=== PATIENT | female | born 1970 | race Caucasian/White ===

== ENCOUNTER 2016-09-22 05:39 | Day surgery (SDC) | payer OTHER ==
[2016-09-22] VITALS (8 sets, daily range): BP systolic 97–120; BP diastolic 54–70; PULSE 68–74; RESP 11–17; O2SAT 95–99
[~2016-09-22] VITALS: Ht 157.5 cm; Wt 105.0 kg
[2016-09-22] MEDS: Lactated Ringer's 1,000 ML IV SCH ×2 (05:38→07:40)
[~2016-09-22 05:39] MED LIST: ACAI500C PO; ALBU2.5V4 INHALATION; ASPI-973 PO; BUPR150T8 PO; CALCIO DEL MAR PO; CHOL200047 PO; CITA40TA13 PO; CYAN250014 PO; FLAX100038 PO; FURO-129 PO; GABA-504 PO; INSU100I25 SQ; INSU100V28 SUBQ; LACT1CAP13 PO; LIP40 PO; MELO-259 PO; METF-496 PO; METO50TA3 PO; OMEP40CA36 PO; PRE20 PO; PROM25TA14 PO; ROPI3TAB PO; SOY155CA PO; VALA100026 PO
[2016-09-22] MEDS ORDERED: Ondansetron 2 mg/mL 2 mL Inj ONE (05:40)
[2016-09-22] MEDS ORDERED: Propofol 10,000 mCg/mL 20 mL Inj ONE (05:40)
[2016-09-22] MEDS ORDERED: fentaNYL-PF 50 mCg/mL 2 mL Inj ONE (05:40)
[2016-09-22] MEDS ORDERED: CeFAZolin Inj 2 GM in IV Premix 1 EACH IV ONE (06:00)
[2016-09-22] MEDS ORDERED: Insulin LISPRO 300 Unit/3 mL Inj ONE (07:17)
--- NOTE | 2016-09-22 07:27 | PCM.HPANE ---
Patient Data Surgeon Admitting Provider: Attending Provider:Melissa Peguero MD Primary Care Physician:Maddy Ashley Other Provider:Ric Ferguson Anesthesia Reason for Visit Interstitial Cystitis Ht/WT & BMI Height (Feet): 5 Height (Inches): 2.00 Weight (Kilograms): 105.0 Body Mass Index 42.00 Allergies Coded Allergies: Penicillins (Verified Allergy, Unknown, UNKNOWN (FROM OLD RECORD-CAN TAKE ANCEF W/O PROBS.), 09/20/16) metformin (Verified Adverse Reaction, Severe, DIARRHEA (METFORMIN ER OK) , 09/20/16) Past Anesthesia History Anesthesia History: Denies:: Abnormal Airway, Anesthesia Reactions, Difficult Intubation, Fam Anesthesia Reaction, Fam Malignant Hypertherm, Malignant Hyperthermia Diabetes History Hx Diabetes?: Yes Type of Diabetes: Type II Glycemic Control: Insulin & Oral Medication Current Bedside Blood Glucose: 321 MRSA MRSA: No Medications Blood Thinner: Aspirin Hypertension Medication: Yes (LASIX) Home Meds Incl Beta Chris: Yes (Metoprolol 75mg) Date Beta Chris Taken: Sep 22, 2016 Time Beta Chris Taken: 444 Active Scripts Albuterol Neb Soln 2.5 Mg/3 Ml Vial.neb2.5-5 Mg INHALATION Q4H PRN For Shortness of Breath #20 NEB Ref 0 Prov:Norman Deleon DO 10/20/15 Reported Medications Metformin ER 1,000 Mg Tablet1,000 Mg PO BID Ref 0 09/20/16 Bupropion ER (Wellbutrin SR)150 Mg Tablet.er150 Mg PO BID Ref 0 please verify dosage 09/20/16 Valacyclovir 1,000 Mg Tablet1,000 Mg PO Q8H 09/20/16 Promethazine 25 Mg Dnjrzh38 Mg PO Q6H PRN For Nausea Ref 0 09/20/16 Atorvastatin (Lipitor)40 Mg Ykktrr42 Mg PO DAILY Ref 0 09/20/16 Prednisone (PredniSONE)20 Mg Ibdcib06 Mg PO DAILY Ref 0 09/20/16 Flaxseed Oil ([place]-3 Flaxseed Oil)1,000 Mg Capsule1,000 Mg PO DAILY 09/20/16 Aspirin 81 Mg Fygzzl61 Mg PO DAILY Ref 0 09/20/16 Meloxicam 7.5 Mg Tablet7.5 Mg PO DAILY 30 Days Ref 0 03/03/16 Insulin Regular, Human (HUMulin-R U100 Insulin Vial)100 Unit/1 Ml Vial20 Unit SUBQ TID #1 VIAL Ref 0 03/03/16 Gabapentin 400 Mg Capsule1,200 Mg PO HS Ref 0 03/03/16 Soy Isofla/Blk Cohosh/Mag Bark (Estroven 155 mg Capsule)155 Mg Itwmqep718 Mg PO DAILY 03/03/16 Cholecalciferol (Vitamin D3) (Vitamin D3)2,000 Unit Capsule2,000 Unit PO DAILY 03/03/16 Cyanocobalamin (Vitamin B-12) (Vitamin B12)2,500 Mcg Tab.zrng695 Mcg PO DAILY 03/03/16 Acai Galvan Extract (Acai Galvan)500 Mg Pmfnajk978 Mg PO DAILY 03/03/16 Ropinirole 3 Mg Tablet3 Mg PO BID 30 Days Ref 0 09/18/14 Omeprazole 40 Mg Capsule.dr40 Mg PO DAILY 30 Days Ref 0 09/18/14 Insulin Detemir (Levemir Flextouch)100 Unit/1 Ml Insuln.pen55 Unit SQ BID 45U IN AM; 55U IN PM 09/18/14 Metoprolol Tartrate 50 Mg Zdjhbj91 Mg PO BID 30 Days Ref 0 09/18/14 Furosemide (Lasix)20 Mg Rxfmpk35 Mg PO DAILY 30 Days Ref 0 09/18/14 [Calcio Gonzalez] No Conflict Check1 Tab PO DAILY 09/18/14 Citalopram 40 Mg Keuqol09 Mg PO DAILY 30 Days Ref 0 09/17/14 Lactobacillus Acidophilus (Acidophilus)1 Each Capsule2 Each PO DAILY 09/17/14 Discontinued Reported Medications Simvastatin 40 Mg Xvszbg16 Mg PO HS 30 Days Ref 0 03/28/16 Sulfamethoxazole/Trimeth 800-160 mg (Bactrim DS)1 Each Tablet1 Tablet PO BID Ref 0 03/03/16 Metformin 500 Mg Tablet1,000 Mg PO BID Ref 0 03/03/16 Flaxseed (Flaxseed Oil)1,000 Mg Capsule1,000 Mg PO DAILY 09/18/14 Aspirin (Aspir 81)81 Mg Tablet.dr81 Mg PO DAILY Ref 0 09/17/14 History History of ENT Problems?: Yes HEENT History: Denies:: Abnormal Airway Difficult Intubation Hearing Problem Denture Type: Partial- Upper Other HEENT Pertinent History: S/P TONSILLECTOMY Hx of Heart Problems?: Yes Cardiovascular History: Positive for:: Chest Pain Coronary Artery Disease (2006 HX OF SUBENDOCARD. [place] R/T THROMBOTIC THROMBOCYTOPENIA PURPURA) Edema Hypertension (HYPERLIPIDEMIA) Denies:: Congestive Heart Failure Heart Murmur (ECHO 04/2006 EF 60-65%) Valvular Heart Disease Hx of Respiratory Problem?: Yes Respiratory History: Positive for:: Asthma Use of C-PAP Machine (ZOFIA+ W/ CPAP) Use of Inhalers / NEBS Denies:: Tuberculosis Hx Neurologic Problems?: Yes Neurological History: Denies:: CVA Other Neurological Pertinent: RLS Hx of GI Problems?: Yes Gastrointestinal History: Positive for:: Gastroesphageal Reflux Denies:: Rectal Bleeding (HX HEMORRHOIDS C/OF INTERMITTANT DIARRHEA) Hx of Problems?: Yes Genitourinary History: Positive for:: Urinary Tract Infection (RECURRENT INTERSTITIAL CYSTITIS/UTI'S S/P CYSTO,HYDRODILATION) Other Pertinent History: C/OF INCREASING DYSURIA,URGENCY,FREQUENCY INTERSTITIAL CYSTITIS=CURRENT PROBLEM Female Hx: Positive for:: Problems with Breasts? (S/P EXC SUB-AREOLAR CYST, BREAST REDUCTION) Denies:: Currently Skin History: Positive for:: History Skin Disorders? (HX ACNE, SWEAT GLAND DISORDER) Denies:: Pressure Ulcers Hx Musculoskeletal Problems?: Yes Musculoskeletal History: Positive for:: Musculoskeletal Trauma (HX OF SHOULDER INJURIES) Hx of Psycho/Social Problems?: Yes Psycho Social History: Positive for:: Hx Depression Hx Surgeries?: Yes (CYSTO,HYDRODISTENTION,BREAST DUCT EXC/REDUCTION,TONSILS,BTL ) Hx Any Other Health Problems?: Yes Other History: Positive for:: Hospitalization ([place]) Denies:: Cancer Endocrine Disease Thyroid Disease History Blood Transfusions: Denies:: Blood Transfusions Hx Diabetes: YesBedside Blood Glucose: 321 Hx Alcohol Use: NoHx Substance Use: No Smoking Status: Current Every Day Smoker Have You Smoked inLast 12 mo: Yes Stop/Bang S-Snoring: Do You Snore Loudly: No T-Tired: feel tired, fatigued: Yes O-Obsered: Observed not breath: No P-Blood Pressure: treated: Yes B- Body Mass Index > 35 kg/m2: Yes A- Age over 50: No N- Neck Large Circumference: Yes G- Gender Male: No ZOFIA Total Score: 4 Risk Assessment Category Category 1A: Patient has history of documented sleep apnea, and HAS NOT received any narcotic, sedative or anesthesia administration during this stay. Category 1B: Patient has history of documented sleep apnea, and HAS received any narcotic , sedative or anesthesia administration during this stay Category 2: Patient has SUSPECTED Obstructive Sleep Apnea, and HAS received any narcotic , sedative or anesthesia administration during this stay. Category 3: Patient has SUSPECTED Obstructive Sleep Apnea and HAS NOT received narcotic, sedative or anesthesia administration during this stay. Category 4: Outpatient in Procedural Areas with known sleep apnea or who screen positive for High Risk via the STOP/BANG questionnaire. Exam Exam Vital Signs Vital Signs Date Time Temp Pulse Resp B/P Pulse Ox O2 Delivery O2 Flow Rate FiO2 09/22/16 06:10 36.1 68 16 114/68 Room Air General Appearance: Alert, Oriented X3, Cooperative, No Acute Distress HEENT/AIRWAY: MP 1 Lungs: Normal Air Movement Heart: Regular Rate/Rhythm Meds/Labs/Diagnostics Admission Meds Current Medications Lactated Ringer's (Lr) 1,000 ml @ 120 mls/hr Q8H20M IV Last administered on t 05:38; Start 09/22/16 at 05:00; Stop 09/22/16 at 13:19 Bedside Blood Glucose: 321 Plan Impression Patient chart reviewed, patient interviewed and anesthestic plan with risks, benefits, and alternatives discussed, and informed consent obtained. NPO Status: 09/21 at 2100 ASA Physical Status: ASA3 Severe Disease Anesthetic Plan: GA Bene/Risks/Altern/Consents: Yes HP Complete Prior to Induction: Yes Noemi Dave DO Sep 22, 2016 07:27
[2016-09-22] MEDS ORDERED: MetoCLOpramide 5 mg/mL 2 mL Inj IVPUSH PRN (07:50)
[2016-09-22] MEDS ORDERED: Lactated Ringer's 500 ML IV PRN (07:50)
[2016-09-22] MEDS ORDERED: Lactated Ringer's 1,000 ML IV SCH (07:50)
[2016-09-22] MEDS ORDERED: HYDROmorphone 1 mg/mL Inj IVPUSH PRN (07:50)
[2016-09-22] MEDS ORDERED: Glucose 40% Oral Gel 15 Gm Tube PO PRN (07:50)
[2016-09-22] MEDS ORDERED: Ondansetron 2 mg/mL 2 mL Inj IVPUSH PRN (07:50)
[2016-09-22] MEDS ORDERED: EPHEDrine Sulfate 50 mg/mL Inj IVPUSH PRN (07:50)
[2016-09-22] MEDS ORDERED: Phenylephrine 10,000 mCg/mL Inj IVPUSH PRN (07:50)
[2016-09-22] MEDS ORDERED: fentaNYL-PF 50 mCg/mL 2 mL Inj IVPUSH PRN (07:50)
[2016-09-22] MEDS ORDERED: Insulin LISPRO 300 Unit/3 mL Inj SUBQ SCH (08:00)
[2016-09-22] MEDS ORDERED: HYDROcodone-APAP 5-325 mg Tablet PO PRN (08:10)
--- NOTE | 2016-09-22 08:26 | PCM.ANEP1 ---
Post Anesthesia Phase 1 PACU Phase 1 Assessment Vital Signs Vital Signs Date Time Temp Pulse Resp B/P Pulse Ox O2 Delivery O2 Flow Rate FiO2 09/22/16 08:20 68 13 102/67 99 Simple Mask 8 09/22/16 08:15 69 14 120/70 98 Simple Mask 8 09/22/16 08:10 36.3 68 13 107/57 98 Simple Mask 8 09/22/16 06:10 36.1 68 16 114/68 Room Air Anesthetic Administered: GA Level of Alertness: Sleepy, easy to arouse REYES's with Equal Strength: Yes Pain: No Nausea or Vomiting: No Oxygen Delivery: Simple Mask Lungs: Normal Air Movement Noemi Dave DO Sep 22, 2016 08:26
--- NOTE | 2016-09-22 08:26 | PCM.ANEP2 ---
Post Anesthesia Evaluation ASA/CMS Post Anesthesia VS in Patient's Normal Range?: Yes Resp Stable; Airway Patent?: Yes CV Function & Hydration Stable: Yes Mental Status Recovered?: Yes Pain control Satisfactory?: Yes N/V Control Satisfactory?: Yes Noemi Dave DO Sep 22, 2016 08:26
--- NOTE | 2016-09-22 16:33 | OP ---
[address] [address] OPERATIVE REPORT PATIENT: NIA GRAVES : 1970 MR#: [id number] ADMIT: 09/22/2016 JOB ID: [id number] DATE OF SURGERY: 09/22/2016 PREOPERATIVE DIAGNOSIS(ES): 1. Interstitial cystitis. 2. History of recurrent urinary tract infection. POSTOPERATIVE DIAGNOSIS(ES): 1. Interstitial cystitis. 2. History of recurrent urinary tract infection. PROCEDURE PERFORMED: Cystoscopy and hydrodistention. SURGEON: Melissa Peguero MD. CALCIMINER: None. FINDINGS: 1. Diffuse cystitis cystica. 2. Intravesical hyperemia and some petechiae present status post hydrodistention. ANESTHESIA: General. ESTIMATED BLOOD LOSS: None. DRAINS: None. SPECIMENS: None. COMPLICATIONS: None. CONDITION: Stable. INDICATION FOR PROCEDURE: The patient is a 46-year-old woman with a history of interstitial cystitis and recurrent urinary tract infections. She now presents for cystoscopy and hydrodistention. DESCRIPTION OF THE PROCEDURE: After informed consent was obtained, the patient was taken to the operating room. A time-out was performed identifying correct patient, surgical site, and procedure. General anesthesia ws smoothly induced. She was given intravenous antibiotics just prior to the start of the procedure. She was placed in the lithotomy position and all pressure points were identified and appropriately padded. Her genitals were then prepped and draped in the usual sterile fashion. A 22-Yi rigid cystoscope was applied to the patient's urethra and advanced to the bladder. Bladder was drained. The bladder was systematically inspected. Both ureteral orifices were in orthotopic position. There was a finding of diffuse cystitis cystica. Hydrodistention proceeded x3. Volumes were 750 mL, 800 mL, and 800 mL, respectively. Cystoscopy post distention did reveal hyperemia and petechiae, consistent with history of interstitial cystitis. The bladder was drained. The patient was then reversed from general anesthesia and taken to PACU in good and stable condition. [facility]
== END 2016-09-22 23:59 | disposition home or self-care (01) ==
LOC: SAS 05:39
PROVIDERS: ATTEND Urology
DX: N30.10 Interstitial cystitis (chronic) without hematuria (principal); N39.46 Mixed incontinence; R35.0 Frequency of micturition; I10 Essential (primary) hypertension; F32.9 Major depressive disorder, single episode, unspecified; K21.9 Gastro-esophageal reflux disease without esophagitis; E11.9 Type 2 diabetes mellitus without complications; J45.909 Unspecified asthma, uncomplicated; E78.5 Hyperlipidemia, unspecified; G25.81 Restless legs syndrome; F17.210 Nicotine dependence, cigarettes, uncomplicated; Z87.440 Personal history of urinary (tract) infections; Z79.82 Long term (current) use of aspirin; Z79.4 Long term (current) use of insulin; Z79.84 Long term (current) use of oral hypoglycemic drugs
CPT/HCPCS: 52260; J0690; J2405; J3010; J7120

== ENCOUNTER 2016-12-20 06:43 | Day surgery (SDC) | payer OTHER ==
[2016-12-20] VITALS (9 sets, daily range): BP systolic 101–128; BP diastolic 60–79; PULSE 78–86; RESP 15–26; O2SAT 94–97
[~2016-12-20] VITALS: Ht 157.5 cm; Wt 115.3 kg
[~2016-12-20 06:43] MED LIST changes: +Botulinum Toxin Type-A 100 unit Inj XX ONE; -LACT1CAP13 PO; +LACT1CAP26 PO; +LIRA0.6P SQ; +Levofloxacin 500 mg/100 mL D5W IV ONE
[2016-12-20] MEDS ORDERED: Propofol 10,000 mCg/mL 20 mL Inj ONE (06:44)
[2016-12-20] MEDS ORDERED: fentaNYL-PF 50 mCg/mL 2 mL Inj ONE (06:44)
[2016-12-20] MEDS ORDERED: Ketamine 10 mg/mL 20 mL Inj ONE (06:44)
[2016-12-20] MEDS ORDERED: levoFLOXacin 500 mg/100 mL D5W Premix IV ONE (07:11)
[2016-12-20] MEDS: Lactated Ringer's 1,000 ML IV SCH ×2 (07:21→09:09)
[2016-12-20] MEDS ORDERED: Insulin LISPRO 300 Unit/3 mL Inj ONE (07:39)
[2016-12-20] MEDS ORDERED: Insulin LISPRO 300 Unit/3 mL Inj IV ONE ×2 (07:45→09:35)
--- NOTE | 2016-12-20 07:45 | PCM.HPANE ---
Patient Data Surgeon Admitting Provider: Attending Provider:Melissa Peguero MD Primary Care Physician:Maddy Ashley Other Provider:Ric Ferguson Anesthesia Reason for Visit Lower Urinary Tract Symptoms Ht/WT & BMI Height (Feet): 5 Height (Inches): 2 Weight (Kilograms): 115.3 Body Mass Index 46.00 Allergies Coded Allergies: No Known Allergies (Unverified , 12/18/16) Past Anesthesia History Anesthesia History: Denies:: Abnormal Airway, Anesthesia Reactions, Difficult Intubation, Fam Anesthesia Reaction, Fam Malignant Hypertherm, Malignant Hyperthermia Diabetes History Hx Diabetes?: Yes Type of Diabetes: Type II Glycemic Control: Insulin & Oral Medication Current Bedside Blood Glucose: 325 MRSA MRSA: No Medications Blood Thinner: Aspirin Hypertension Medication: Yes Home Meds Incl Beta Chirs: Yes Active Scripts Albuterol Neb Soln 2.5 Mg/3 Ml Vial.neb2.5-5 Mg INHALATION Q4H PRN For Shortness of Breath #20 NEB Ref 0 Prov:Norman Deleon DO 10/20/15 Reported Medications Liraglutide (Victoza 2-Deon)0.6 Mg/0.1 Ml Pen.injctr0.2 Mg SQ DAILY 12/18/16 Metformin ER 1,000 Mg Tablet1,000 Mg PO BID Ref 0 09/20/16 Bupropion ER (Wellbutrin SR)150 Mg Tablet.er150 Mg PO BID Ref 0 please verify dosage 09/20/16 Valacyclovir 1,000 Mg Tablet1,000 Mg PO Q8H 09/20/16 Promethazine 25 Mg Zjgqdq26 Mg PO Q6H PRN For Nausea Ref 0 09/20/16 Atorvastatin (Lipitor)40 Mg Tdgekd94 Mg PO DAILY Ref 0 09/20/16 Prednisone (PredniSONE)20 Mg Ltyfie91 Mg PO DAILY Ref 0 09/20/16 Flaxseed Oil ([place]-3 Flaxseed Oil)1,000 Mg Capsule1,000 Mg PO DAILY 09/20/16 Aspirin 81 Mg Ogcnfx13 Mg PO DAILY Ref 0 09/20/16 Meloxicam 7.5 Mg Tablet7.5 Mg PO DAILY 30 Days Ref 0 03/03/16 Insulin Regular, Human (HUMulin-R U100 Insulin Vial)100 Unit/1 Ml Vial20 Unit SUBQ TID #1 VIAL Ref 0 03/03/16 Gabapentin 400 Mg Capsule1,200 Mg PO HS Ref 0 03/03/16 Soy Isofla/Blk Cohosh/Mag Bark (Estroven 155 mg Capsule)155 Mg Siszyko477 Mg PO DAILY 03/03/16 Cholecalciferol (Vitamin D3) (Vitamin D3)2,000 Unit Capsule2,000 Unit PO DAILY 03/03/16 Cyanocobalamin (Vitamin B-12) (Vitamin B12)2,500 Mcg Tab.knll854 Mcg PO DAILY 03/03/16 Acai Galvan Extract (Acai Galvan)500 Mg Tqcgqfr067 Mg PO DAILY 03/03/16 Ropinirole 3 Mg Tablet3 Mg PO BID 30 Days Ref 0 09/18/14 Omeprazole 40 Mg Capsule.dr40 Mg PO DAILY 30 Days Ref 0 09/18/14 Insulin Detemir (Levemir Flextouch)100 Unit/1 Ml Insuln.pen55 Unit SQ BID 45U IN AM; 55U IN PM 09/18/14 Metoprolol Tartrate 50 Mg Lnpicv51 Mg PO BID 30 Days Ref 0 09/18/14 Furosemide (Lasix)20 Mg Asadry77 Mg PO DAILY 30 Days Ref 0 09/18/14 [Calcio Gonzalez] No Conflict Check1 Tab PO DAILY 09/18/14 Citalopram 40 Mg Pdnjzs21 Mg PO DAILY 30 Days Ref 0 09/17/14 Lactobacillus Acidophilus (Acidophilus)1 Each Capsule2 Each PO DAILY 09/17/14 History History of ENT Problems?: Yes HEENT History: Positive for:: TMJ (grinds, no nightguard) Denies:: Abnormal Airway Difficult Intubation Hearing Problem Denture Type: None Full- Upper Teeth Condition: Within Normal Limits No Teeth Hx of Heart Problems?: Yes Cardiovascular History: Positive for:: Chest Pain Edema Hypertension Denies:: Congestive Heart Failure Heart Murmur (ECHO 04/2006 EF 60-65%) Valvular Heart Disease Hx of Respiratory Problem?: Yes Respiratory History: Positive for:: Asthma COPD ("start of- nothing actually determined") Use of C-PAP Machine (ZOFIA +) Denies:: Oxygen Administration Pneumonia Tuberculosis Use of Inhalers / NEBS Hx Neurologic Problems?: No Neurological History: Denies:: CVA Headaches Multiple Sclerosis Parkinson's Disease Seizures TIA Hx of GI Problems?: Yes Hx of Problems?: Yes Genitourinary History: Positive for:: Urinary Tract Infection (hx of ) Female Hx: Positive for:: Problems with Breasts? (hx of breast reduction) Denies:: Currently (tubal ) Skin History: Denies:: History Skin Disorders? Pressure Ulcers Hx Musculoskeletal Problems?: Yes Musculoskeletal History: Positive for:: Degenerative Joint Musculoskeletal Trauma (osteoporosis hips) Denies:: Back Injury Fibromyalgia Joint Replacement Myasthenia Gravis Osteoarthritis Rheumatoid Arthritis Systemic Lupus Hx of Psycho/Social Problems?: Yes Psycho Social History: Positive for:: Anxiety (PTSD, ) Hx Depression Hx Surgeries?: Yes (CYSTO,HYDRODISTENTION,BREAST DUCT EXC/REDUCTION,TONSILS,BTL ) Hx Any Other Health Problems?: Yes Other History: Positive for:: Hospitalization ([place]) Denies:: Cancer Endocrine Disease Thyroid Disease History Blood Transfusions: Denies:: Blood Transfusions Hx Diabetes: YesBedside Blood Glucose: 325 Hx Alcohol Use: NoHx Substance Use: No Smoking Status: Current Every Day Smoker Have You Smoked inLast 12 mo: Yes (1 pack day) Stop/Bang P-Blood Pressure: treated: Yes B- Body Mass Index > 35 kg/m2: Yes A- Age over 50: No N- Neck Large Circumference: Yes G- Gender Male: No ZOFIA Risk Assessment: High Risk, =/>3 Yes ZOFIA Category 4 OutPt Procedure: Yes Risk Assessment Category Category 1A: Patient has history of documented sleep apnea, and HAS NOT received any narcotic, sedative or anesthesia administration during this stay. Category 1B: Patient has history of documented sleep apnea, and HAS received any narcotic , sedative or anesthesia administration during this stay Category 2: Patient has SUSPECTED Obstructive Sleep Apnea, and HAS received any narcotic , sedative or anesthesia administration during this stay. Category 3: Patient has SUSPECTED Obstructive Sleep Apnea and HAS NOT received narcotic, sedative or anesthesia administration during this stay. Category 4: Outpatient in Procedural Areas with known sleep apnea or who screen positive for High Risk via the STOP/BANG questionnaire. Exam Exam Vital Signs Vital Signs Date Time Temp Pulse Resp B/P Pulse Ox O2 Delivery O2 Flow Rate FiO2 12/20/16 07:21 36.3 86 16 112/76 94 Room Air General Appearance: Alert, Oriented X3, Cooperative, No Acute Distress HEENT/AIRWAY: MP 2 Lungs: Clear to Auscultation, Normal Air Movement Heart: Exam Unremarkable, Regular Rate/Rhythm, No Murmurs/Rubs/Gallops Meds/Labs/Diagnostics Admission Meds Current Medications Lactated Ringer's (Lr) 1,000 ml @ 120 mls/hr Q8H20M IV Last administered on t 07:21; Start 12/20/16 at 05:00; Stop 12/20/16 at 13:19 Bedside Blood Glucose: 325 Plan Impression Patient chart reviewed, patient interviewed and anesthestic plan with risks, benefits, and alternatives discussed, and informed consent obtained. NPO per Anesth. Guidelines: Yes ASA Physical Status: ASA3 Severe Disease (HgBA1C 14-she is under the care of a nurse practitioner and working very hard on glycemic control) Anesthetic Plan: GA Bene/Risks/Altern/Consents: Yes HP Complete Prior to Induction: Yes Tej Wilcox MD Dec 20, 2016 07:45
[2016-12-20] MEDS ORDERED: EPHEDrine Sulfate 50 mg/mL Inj IVPUSH PRN (08:10)
[2016-12-20] MEDS ORDERED: Ondansetron 2 mg/mL 2 mL Inj IVPUSH PRN (08:10)
[2016-12-20] MEDS ORDERED: HYDROmorphone 1 mg/mL Inj IVPUSH PRN (08:10)
[2016-12-20] MEDS ORDERED: MetoCLOpramide 5 mg/mL 2 mL Inj IVPUSH PRN (08:10)
[2016-12-20] MEDS ORDERED: Phenylephrine 10,000 mCg/mL Inj IVPUSH PRN (08:10)
[2016-12-20] MEDS ORDERED: fentaNYL-PF 50 mCg/mL 2 mL Inj IVPUSH PRN (08:10)
[2016-12-20] MEDS ORDERED: Dexamethasone 4 mg/mL Inj IVPUSH PRN (08:10)
[2016-12-20] MEDS ORDERED: Lactated Ringer's 1,000 ML IV SCH (08:10)
[2016-12-20] MEDS ORDERED: Lactated Ringer's 500 ML IV PRN (08:10)
[2016-12-20] MEDS ORDERED: Botulinum Toxin Type-A 100 unit Inj IM ONE (09:08)
[2016-12-20] MEDS ORDERED: HYDROcodone-APAP 5-325 mg Tablet PO PRN (09:30)
--- NOTE | 2016-12-20 10:38 | PCM.ANEP1 ---
Post Anesthesia PACU Phase 1 Assessment Vital Signs Vital Signs Date Time Temp Pulse Resp B/P Pulse Ox O2 Delivery O2 Flow Rate FiO2 12/20/16 10:10 16 94 Nasal Cannula 1 12/20/16 10:01 78 16 124/67 96 Nasal Cannula 2 12/20/16 09:54 79 26 128/79 94 Room Air 12/20/16 09:45 36.4 83 16 112/67 96 NC INTO LMA 9 12/20/16 09:40 83 15 110/66 96 NC INTO LMA 9 12/20/16 09:35 84 16 101/60 96 NC INTO LMA 9 12/20/16 09:30 36.2 114/64 12/20/16 07:21 36.3 86 16 112/76 94 Room Air Anesthetic Administered: GA Level of Alertness: Awake, talking REYES's with Equal Strength: Yes Pain: No Nausea or Vomiting: No CV Function & Hydration Stable: Yes Airway Device: LMA Oxygen Delivery: Nasal Cannula Lungs: Clear to Auscultation, Normal Air Movement Dermatome Level: Full Sensation PACU Phase 2 Assessment Complications: No Follow up Care: No Patient Instructions Provided: Yes Tej Wilcox MD Dec 20, 2016 10:38
--- NOTE | 2016-12-20 14:20 | OP ---
[address] [address] OPERATIVE REPORT PATIENT: NIA GRAVES : 1970 MR#: [id number] ADMIT: 12/20/2016 JOB ID: [id number] DATE OF SURGERY: 12/20/2016 PREOPERATIVE DIAGNOSIS(ES): Lower urinary tract symptoms. POSTOPERATIVE DIAGNOSIS(ES): 1. Lower urinary tract symptoms. 2. Cystocele. PROCEDURE: 1. Cystoscopy. 2. Intravesical Botox injections. SURGEON: Melissa Peguero M.D. CUSTOMER ENGINEERING SPECIALIST: None. FINDINGS: Grade 3 cystocele under anesthesia. ANESTHESIA: General. ESTIMATED BLOOD LOSS: Less than 2 mL. DRAINS: None. SPECIMENS: None. COMPLICATIONS: None. CONDITION: Stable. INDICATION FOR PROCEDURE: The patient is a 46-year-old woman with lower urinary tract symptoms. She also has uncontrolled diabetes for which she is being managed by Endocrinology. She now presents for Botox bladder injection. DESCRIPTION OF PROCEDURE: After informed consent was obtained, the patient was taken to the operating room. A time-out was performed identifying correct patient, surgical site and procedure. General anesthesia was smoothly induced. She was placed in the lithotomy position and all pressure points were identified and appropriately padded. Her genitals were then prepped and draped in the usual sterile fashion. The findings were aforementioned. She had a significant cystocele under anesthesia at the vaginal introitus. The urethral meatus was cannulated with a 22-[place] rigid cystoscope. Entry into the bladder was gained. The bladder was drained. The bladder was systematically inspected. At the bladder base, there was some cystitis cystica there. Both ureteral orifices were in orthotopic position and normal appearing. There was squamous metaplasia along the trigone. The Botox had been reconstituted for a total of 20 mL of injectable saline. 100 units was distributed across in equal aliquots into the bladder wall avoiding the ureteral orifices and area surrounding them. The patient appeared to tolerate the procedure well. The bladder was drained. She was reversed from general anesthesia and taken to PACU in good and stable condition. [facility]
== END 2016-12-20 23:59 | disposition home or self-care (01) ==
LOC: SAS 06:43
PROVIDERS: ATTEND Urology
DX: N30.80 Other cystitis without hematuria (principal); N81.10 Cystocele, unspecified; N39.46 Mixed incontinence; E11.65 Type 2 diabetes mellitus with hyperglycemia; K21.9 Gastro-esophageal reflux disease without esophagitis; F32.9 Major depressive disorder, single episode, unspecified; G47.00 Insomnia, unspecified; I10 Essential (primary) hypertension; E78.5 Hyperlipidemia, unspecified; G25.81 Restless legs syndrome; D69.6 Thrombocytopenia, unspecified; I25.2 Old myocardial infarction; F17.210 Nicotine dependence, cigarettes, uncomplicated; Z79.82 Long term (current) use of aspirin; Z79.4 Long term (current) use of insulin; Z79.84 Long term (current) use of oral hypoglycemic drugs
CPT/HCPCS: 52287; J0585; J1815; J2250; J3010; J7120